=== PATIENT | male | born 1960 | race Asian ===

== ENCOUNTER 2019-03-21 07:14 | Day surgery (SDC) | payer OTHER ==
[~2019-03-21] VITALS: Ht 175.3 cm; Wt 88.0 kg
[2019-03-21] MEDS ORDERED: fentaNYL 0.05 MG/ML VIAL ONE (10:08)
[2019-03-21] MEDS ORDERED: LIDOCAINE 2% 100 MG/5 ML UJET TP ONE (10:08)
[2019-03-21] MEDS ORDERED: KETOROLAC 60 MG/2 ML VIAL IM ONE (10:22)
[2019-03-21] MEDS ORDERED: KETOROLAC 60 MG/2 ML VIAL IM SCH (13:00)
== END 2019-03-21 12:12 | disposition home or self-care (01) ==
LOC: MDS 07:14 → MMU 07:23 → MDS 12:12
PROVIDERS: ATTEND Internal Medicine Gastroenterology
DX: Z12.11 Encounter for screening for malignant neoplasm of colon (principal); D12.2 Benign neoplasm of ascending colon; D12.3 Benign neoplasm of transverse colon; K57.30 Diverticulosis of large intestine without perforation or abscess without bleeding; K64.8 Other hemorrhoids; K76.0 Fatty (change of) liver, not elsewhere classified; E11.9 Type 2 diabetes mellitus without complications; I10 Essential (primary) hypertension; E66.3 Overweight; Z87.891 Personal history of nicotine dependence; Z79.899 Other long term (current) drug therapy; Z68.27 Body mass index [BMI] 27.0-27.9, adult
CPT/HCPCS: 45385; J1885; J3010